=== PATIENT | female | born 1965 | race Caucasian/White ===

== ENCOUNTER 2021-12-21 14:47 | Outpatient (CLI) | payer BC, SELFPAY ==
--- NOTE | 2021-12-21 | MM_ITS ---
WS: [id number] BILATERAL 3D TOMOSYNTHESIS DIGITAL SCREENING MAMMOGRAPHY WITH CAD CLINICAL INFORMATION: SCREENING HISTORY: Screening mammogram. No current complaints. COMPARISON: June 26, 2019 TECHNIQUE: Bilateral CC and MLO views. FINDINGS: Scattered fibroglandular densities bilaterally. 6 mm ovoid nodular density outer LEFT breast appears progressed from the prior examinations. Additional slightly irregular 5 mm asymmetric density best se en on the MLO view appears new from the prior examinations. Recommend LEFT diagnostic mammography and ultrasound for further evaluation of these areas. RIGHT breast is unremarkable and unchanged. A few lucent centered calcifications. MM/[place] [id number] IMPRESSION: BI-RADS: 0-Incomplete: Need additional imaging evaluation FOLLOW UP: Need Additional Imaging Recommend LEFT diagnostic mammography and ultrasound for further evaluation.
== END 2021-12-21 14:48 | disposition home or self-care (01) ==
LOC: RADSHAW 14:49
PROVIDERS: Visit Provider Nurse Practitioner
DX: Z12.31 Encounter for screening mammogram for malignant neoplasm of breast (principal)
CPT/HCPCS: 77063; 77067

== ENCOUNTER 2022-01-17 10:12 | Outpatient (CLI) | payer BC, SELFPAY ==
--- NOTE | 2022-01-17 10:32 | MM_ITS ---
WS: [id number] LEFT 3D TOMOSYNTHESIS DIGITAL MAMMOGRAPHY WITH CAD CLINICAL INFORMATION: ABNORMAL MAMMOGRAM COMPARISON: December 21, 2021 TECHNIQUE: 5 views of the left breast were obtained. FINDINGS: Scattered fibroglandular densities of the left breast. 6 mm ovoid density outer LEFT breast is unchan ged. Adjacent slightly irregular 5 mm asymmetric density also appears unchanged. Ultrasound LEFT boom st is pending. ULTRASOUND BREAST LEFT TECHNIQUE: Ultrasound left breast focused area of concern. CLINICAL INFORMATION: ABNORMAL MAMMOGRAM COMPARISON: None. FINDINGS: Incidental simple cyst measuring 8 x 6 x 10 mm at the 1:00 position 2 cm from the nipple. Additional hypoechoic ovoid lesion at the 1:00 position measuring 7.0 x 3.6 x 8.1 mm nonspecific but suspicious for a small intramammary lymph node. This is probably benign and recommend 6 month follow- up. MM/[place] [id number] IMPRESSION: BI-RADS: 3-Probably Benign FOLLOW UP: 6 Month Follow-up Recommend 6 month follow-up LEFT breast diagnostic mammography and ultrasound
== END 2022-01-17 10:13 | disposition home or self-care (01) ==
PROVIDERS: PCP Nurse Practitioner Family; Visit Provider Nurse Practitioner Family
DX: R92.8 Other abnormal and inconclusive findings on diagnostic imaging of breast (principal); N60.02 Solitary cyst of left breast; N64.89 Other specified disorders of breast
CPT/HCPCS: 76642; 77061

== ENCOUNTER 2022-07-19 14:48 | Outpatient (CLI) | payer BC, SELFPAY ==
--- NOTE | 2022-07-19 14:57 | MM_ITS ---
WS: [id number] LEFT 3D TOMOSYNTHESIS DIGITAL MAMMOGRAPHY WITH CAD CLINICAL INFORMATION: ABNORMAL MAMMO HISTORY: Six-month follow-up COMPARISON: January 17, 2022 TECHNIQUE: 3 views of the left breast were obtained. FINDINGS: Scattered fibroglandular densities of the left breast. Slightly irregular 5 mm asymmetric density is unchanged. 6 mm ovoid density outer LEFT breast is stable. Ultrasound described below. ULTRASOUND BREAST LEFT TECHNIQUE: Ultrasound left breast focused area of concern. CLINICAL INFORMATION: ABNORMAL MAMMO FINDINGS: Incidental simple cyst at the 1:00 position 2 cm from the nipple measuring 10 x 9 mm. Ductal ectasia with a small amount of intraductal debris at the 1:00 position 2 cm from the nipple. Additional incidental ductal ectasia at the 1:00 position 5 cm from the nipple with suspected adjace nt intramammary lymph node unchanged in appearance. Findings have a benign appearance and recommend r eturn to annual screening mammography. MM/[place] [id number] IMPRESSION: BI-RADS: 2-Benign FOLLOW UP: 1 Year Follow-up Recommend return to annual screening mammography.
== END 2022-07-19 14:49 | disposition home or self-care (01) ==
LOC: RAD 14:48
PROVIDERS: PCP Nurse Practitioner Family; Visit Provider Nurse Practitioner Family
DX: N60.42 Mammary duct ectasia of left breast (principal)
CPT/HCPCS: 76642; 77061

== ENCOUNTER 2023-08-23 14:41 | Outpatient (CLI) | payer OTHER, SELFPAY ==
--- NOTE | 2023-08-23 14:50 | MM_ITS ---
WS: [id number] VIEWS: MLO and CC views both breasts. 3D digital tomosynthesis is also included in this exam. Comparison made with prior exam of 04/03/2017, 06/07/2018, 06/26/2019, 12/11/2021.. Findings: There was no sign of mass, architectural distortion or suspicious calcification in either breast. Sta ble appearing nodular densities noted bilaterally there are scattered areas of fibroglandular density Impression: MM/[place] [id number] BI-RADS: 2-Benign finding. FOLLOW-UP: 1 Year Follow-up This mammogram was also analyzed by the Computer Aided Detection System R2 Imag e [employer]ch [employer].
== END 2023-08-23 14:42 | disposition home or self-care (01) ==
LOC: RAD 14:42
PROVIDERS: PCP Nurse Practitioner Family; Visit Provider Nurse Practitioner Family
DX: Z12.31 Encounter for screening mammogram for malignant neoplasm of breast (principal)
CPT/HCPCS: 77063; 77067

== ENCOUNTER 2024-06-10 15:48 | Outpatient (CLI) | payer OTHER, SELFPAY | END 2024-06-10 15:49 | disposition home or self-care (01) | LOC: SLEEP 15:49 | PROVIDERS: PCP Nurse Practitioner Family; Visit Provider Nurse Practitioner Family | DX: G47.33 Obstructive sleep apnea (adult) (pediatric) (principal) | CPT/HCPCS: G0399 ==

== ENCOUNTER 2024-08-15 15:18 | Outpatient (CLI) | payer OTHER, SELFPAY ==
--- NOTE | 2024-08-15 15:24 | MR_ITS ---
WS: [id number] MRI BRAIN WITH HIGH-RESOLUTION IMAGING THROUGH THE INTERNAL AUDITORY CANALS WITHOUT AND WITH CONTRAST HISTORY: HEARING LOSS, RIGHT EAR COMPARISON: None available. TECHNIQUE: Multiplanar, multisequence imaging is performed through the brain. Additional 3 mm imaging performed in multiple planes through the internal auditory canal. Postcontrast imaging with 20 ml's of MultiHance. No acute intracranial hemorrhage, midline shift, edema or mass effect. No significant atrophy. Hippocampal formations are normal. Ventricles and extra-axial spaces are normal. No inferior displacement of cerebellar tonsils. Clivus and pituitary gland are normal. Internal and external auditory canals: Unremarkable. No mass or abnormal enhancement. Cranial nerves VII and VIII complexes: Unremarkable. No enhancement or mass. Cerebellopontine angles: Normal. Paranasal sinuses: Normal. Mastoid air cells: Extensive bilateral mastoid air cell effusions, LEFT greater than RIGHT. Calvarium and scalp: Normal. Visualized tejon of Patricia and dural venous sinuses demonstrate no abnormality. MR/MR iac's wo/w con* [id number] IMPRESSION: 1. Unremarkable MRI of the internal auditory canals. 2. No acute or remote infarct. 3. Extensive bilateral mastoid air cell effusions, LEFT greater than RIGHT.
[2024-08-15] MEDS: gadobenate dimeglumine 20 mL vial IV (18:40)
== END 2024-08-15 15:19 | disposition home or self-care (01) ==
LOC: RAD 15:19
PROVIDERS: PCP Nurse Practitioner Family; Visit Provider Specialist
DX: H74.8X3 Other specified disorders of middle ear and mastoid, bilateral (principal); H91.8X1 Other specified hearing loss, right ear
CPT/HCPCS: 70553

== ENCOUNTER 2024-09-24 08:12 | Outpatient (CLI) | payer OTHER, SELFPAY ==
--- NOTE | 2024-09-24 08:17 | MM_ITS ---
WS: [id number] Bilateral screening 3D tomosynthesis digital mammogram, 09/24/2024 8:27 AM Clinical Data: SCREENING Comparison: 08/23/2023, 07/19/2022, 01/17/2022, 12/21/2021, 06/26/2019, 06/07/2018, 04/03/2017. Findings: No spiculated masses or clustered calcifications are seen. There are no secondary signs of carcinoma . MM/MM scr BI tomosynthesis [id number] Impression: Negative bilateral mammogram unchanged. Recommend annual screening mammograms. BIRADS: 1 - Negative. FOLLOW UP: 1 Year Follow-up DENSITY: There are scattered areas of fibroglandular density. The CAD waterway traffic checker was used
== END 2024-09-24 08:13 | disposition home or self-care (01) ==
LOC: RAD 08:13
PROVIDERS: PCP Nurse Practitioner Family; Visit Provider Nurse Practitioner Family
DX: Z12.31 Encounter for screening mammogram for malignant neoplasm of breast (principal)
CPT/HCPCS: 77063; 77067

== ENCOUNTER 2025-08-17 15:00 | Outpatient (CLI) | payer BC, SELFPAY ==
--- NOTE | 2025-08-17 15:10 | MR_ITS ---
WS: [email or web address] MRI LUMBAR SPINE NONCONTRAST TECHNIQUE: Sagittal T1, T2 and STIR imaging. Axial T1 and T2 imaging. CLINICAL INFORMATION: CHRONIC BILATERAL LOW BACK PAIN W/BILATERAL SCIATICA COMPARISON: None. FINDINGS: Mild lumbar curve. No acute compression. Grade 1 anterolisthesis L5 on S1. Disc bulging worse at L1-2 with prominent central and LEFT subarticular protrusion with moderate to severe central canal stenosis. Prior hemilaminectomies L4-L5 and L5-S1. 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 L1-L2: Central LEFT paracentral protrusion with moderate to severe central canal stenosis. Impingement of the LEFT greater than RIGHT subarticular recess. Mild RIGHT greater than LEFT foraminal narrowing. Moderate facet arthropathy. L2-L3: Mild disc bulge with endplate ridging. Mild LEFT foraminal narrowing. Mild central canal stenosis. Moderate facet arthropathy. L3-L4: Mild disc bulge with narrowing of the RIGHT subarticular recess. Mild RIGHT greater than LEFT foraminal narrowing. Moderate facet arthropathy. Mild central canal stenosis. L4-L5: LEFT eccentric disc bulging with mild LEFT foraminal narrowing. RIGHT foramen is patent. Advanced RIGHT facet arthropathy. L5-S1: Slight anterolisthesis L5 on S1. Advanced facet arthropathy. Spinal canal and foramen are patent. Visualized pelvic bony structures: Normal. Paravertebral soft tissues: Normal. MR/MR lumbar spine wo con* [id number] IMPRESSION: 1. Broad-based central protrusion L1-2 with moderate to severe central canal s tenosis and impingement on the LEFT subarticular recess and traversing LEFT L2 nerve root. Recommend spine surgery consultation 2. Mild central canal stenosis L2-L3 L3-L4. 3. LEFT foraminal protrusion L2-3 with mild LEFT foraminal narrowing and impin gement on the exiting LEFT L2 nerve root. 4. Advanced RIGHT facet arthropathy RIGHT L4-5 and bilateral L5-S1. 5. 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
== END 2025-08-17 15:01 | disposition home or self-care (01) ==
LOC: RAD 15:03
PROVIDERS: PCP Nurse Practitioner Family; Visit Provider Nurse Practitioner Family
DX: M54.42 Lumbago with sciatica, left side (principal); M54.41 Lumbago with sciatica, right side; G89.29 Other chronic pain; M51.26 Other intervertebral disc displacement, lumbar region; M48.061 Spinal stenosis, lumbar region without neurogenic claudication; M54.16 Radiculopathy, lumbar region; M47.896 Other spondylosis, lumbar region; M46.96 Unspecified inflammatory spondylopathy, lumbar region; M43.17 Spondylolisthesis, lumbosacral region; M47.817 Spondylosis without myelopathy or radiculopathy, lumbosacral region
CPT/HCPCS: 72148